=== PATIENT | female | born 1980 | race African-American/Black ===

== ENCOUNTER 2017-06-22 16:22 | Emergency (ER) | payer MEDICAID ==
[~2017-06-22] VITALS: Ht 162.6 cm; Wt 65.0 kg
[2017-06-22] MEDS ORDERED: ACETAMINOPHEN 325MG TABLET PO ONE (22:15)
[2017-06-22 22:26] VITALS: BP 105/72
== END 2017-06-22 22:36 | disposition home or self-care (01) ==
LOC: ER 18:12
DX: O26.892 Other specified pregnancy related conditions, second trimester (principal); H60.02 Abscess of left external ear; Z3A.21 21 weeks gestation of pregnancy
CPT/HCPCS: 99283